=== PATIENT | female | born 1965 | race Two or more races ===

== ENCOUNTER 2017-03-22 10:09 | Day surgery (SDC) | payer MEDICARE, OTHER ==
[~2017-03-22 10:09] MED LIST: LACTATED RINGERS 1,000 ML IV SCH; LIDOCAINE 1% 20 ML VIAL (10MG/ML) FOR IV START INTRADERMA PRN
[2017-03-22 12:05] VITALS: RESP 16; TEMP 96.9
[2017-03-22] MEDS ORDERED: LIDOCAINE 1% 20 ML VIAL (10MG/ML) FOR IV START INTRADERMA ONE (12:05)
[2017-03-22] MEDS ORDERED: PROPOFOL 10 MG/ML 20 ML VIAL IV ONE (12:16)
[2017-03-22 12:26] LABS: Basophils % (A) 0 %; Eosinophils % (A) 1 %; HCT 44.8 % (34.0-46.0); HGB 15.5 gm/dL (11.4-16.0); Lymphocytes # (A) 0.8 k/uL (1.0-4.8); Lymphocytes % (A) 20 %; MCHC 34.7 g/dL (31.0-37.0); MCV 106.8 fL (80.0-100.0); Macrocytosis Moderate; Mean Platelet Volume 7.4; Monocytes # (A) 0.2 k/uL (0-1.0); Monocytes % (A) 4 %; Neutrophils # (A) 2.9 k/uL (1.3-7.7); Neutrophils % (A) 73 %; Platelet Count 178 k/uL (150-450); RBC 4.19 m/uL (3.80-5.40); RDW 14.2 % (11.5-15.5)
[2017-03-22 12:42] LABS: ALT 37 U/L (9-52); AST 36 U/L (14-36); Albumin 4.3 g/dL (3.5-5.0); Alkaline Phosphatase 56 U/L (38-126); Anion Gap 8 mmol/L; Blood Urea Nitrogen 9 mg/dL (7-17); C Reactive Protein 7.5 mg/L (<10.0); Calcium 9.7 mg/dL (8.4-10.2); Carbon Dioxide 31 mmol/L (22-30); Chloride 105 mmol/L (98-107); Glucose 85 mg/dL (74-99); Potassium 4.2 mmol/L (3.5-5.1); Sodium 144 mmol/L (137-145); Total Protein 7.1 g/dL (6.3-8.2)
[2017-03-22] MEDS ORDERED: LACTATED RINGERS 1,000 ML IV ONE (12:46)
--- NOTE | 2017-03-22 12:54 | P.PCN ---
Date of Procedure: 03/22/17 Procedure(s) Performed: Procedures: 1. Esophagogastroduodenoscopy and biopsy. 2. Colonoscopy and biopsy. Preoperative diagnosis: Abdominal pain and diarrhea and history of Crohn's disease. Postoperative diagnosis: 1. Small sliding hiatal hernia with no obvious esophagitis or complicated reflux disease. 2. Mild antral gastritis. 3. S/P right colectomy with no evidence of active inflammatory bowel disease, biopsies obtained from the anastomotic site/small intestine as well as randomly from the colon. Preparation: HalfLytely prep. Sedation: Was provided by anesthesia. Brief clinical history: The patient is a 52-year-old female who is scheduled for this evaluation for the above reasons. The patient was diagnosed with Crohn 's disease in 1987 and has required resection on the right side. She is not currently on any medications specific for inflammatory bowel disease. Her main complaints are epigastric pain, bloating and diarrhea. Procedure: With the patient on her left lateral decubitus position and after informed consent and adequate sedation, I passed the Olympus-GIF 160 video upper endoscope through the cricopharyngeus down the esophagus. GE junction was around 38 cm from the incisors and there was a small sliding hiatal hernia but no obvious esophagitis or complicated reflux disease. The endoscope was then passed into the stomach which was insufflated with air and inspected in detail including the retroflex view in the cardia. There was some mottling and erythema in the antrum but no ulcers or erosions. Pyloric channel, duodenal bulb, post bulbar area and descending duodenum did not show any obvious abnormalities, however, because of her symptoms and history I obtained multiple biopsies from the duodenum in addition to biopsies from the antrum and esophagus then the endoscope was withdrawn and I proceeded with colonoscopy. Perianal area did not show any fissures or fistulas. There were no masses felt on digital rectal examination. The Olympus CFQ 160L video colonoscope was then inserted in the rectum in the usual fashion and advanced to the right side. There appeared to be a prior resection and anastomosis on the right side. The colon appeared healthy. The anastomotic site and the short segment of small bowel visualized appeared healthy. I obtained biopsies from the small intestine /anastomotic site as well as randomly from the colon then I retroflexed the endoscope in the rectum before the endoscope was withdrawn. The patient tolerated the procedure well. Plan: The patient was reassured. Will await biopsy results and make further plans based on her course and biopsy results. I will keep you updated on her progress.
[2017-03-22 13:14] VITALS: BP 101/58; PULSE 56
[2017-03-22 14:33] LABS: Erythrocyte Sedimentation Rate 11 mm/hr (0-20)
== END 2017-03-22 14:05 | disposition home or self-care (01) ==
LOC: ORWHC2ENDO 10:09
DX: R19.7 Diarrhea, unspecified (principal); K20.9 Esophagitis, unspecified; K44.9 Diaphragmatic hernia without obstruction or gangrene; K29.70 Gastritis, unspecified, without bleeding; Z90.49 Acquired absence of other specified parts of digestive tract; M19.90 Unspecified osteoarthritis, unspecified site; E07.9 Disorder of thyroid, unspecified; Z86.73 Personal history of transient ischemic attack (TIA), and cerebral infarction without residual deficits; Z88.5 Allergy status to narcotic agent; Z88.8 Allergy status to other drugs, medicaments and biological substances; Z91.040 Latex allergy status; R41.3 Other amnesia; Z79.899 Other long term (current) drug therapy
CPT/HCPCS: 88305; 80053; 85652; 85025; 86140; 82306; 45380; 43239; J2704